=== PATIENT | female | born 1985 | race Caucasian/White ===

== ENCOUNTER 2016-10-18 00:01 | Emergency (ER) | payer OTHER ==
--- NOTE | 2016-10-18 03:37 | ED CLINICAL REPORT ---
Clinical Report - Physicians/Mid Levels [facility] [address] [place] [address] 10/18/2016 0:00 Patient: SUSU KINGSLEY Time Seen: 00:52. Arrived- By private vehicle. Historian- patient. HISTORY OF PRESENT ILLNESS Chief Complaint: FLANK PAIN. At its maximum, severity described as 8 / 10. When seen in the E.D., severity described as 8 / 10. Modifying factors- worsened by cough. It is described as "pain" and sharp and it is described as located in the left flank. This started about 4 1/2 hours ago and is still present. It was abrupt in onset and has been constant. The patient has had nausea and vomiting. She has had mild loose stools. This has occurred several times. No bloody, mucous containing or blood-tinged diarrhea. Similar symptoms previously: None. REVIEW OF SYSTEMS Last normal menstrual period was 1 week ago. She has had chills, a mild cough and urgency and frequency and experienced sweats. No fever, calf pain, chest pain, difficulty breathing or pedal edema. No black stools or bloody stools. All systems otherwise negative, except as recorded above. PAST HISTORY [facility]CP [facility] [place] [facility] [place] Problems: Dental Pain. Additional Surgeries: Fracture Repair. Medications: Control Pills. Allergies: No Known Drug Allergy. SOCIAL HISTORY Never smoker. Occasional alcohol use. No drug use. FAMILY HISTORY Diabetes in first-degree relative (mother and sibling); hypertension in first-degree relative (father); seizure disorder in first-degree relative (sibling). ADDITIONAL NOTES The nursing notes have been reviewed. PHYSICAL EXAM Vital Signs: Have been reviewed. Appearance: Alert. Eyes: Pupils equal, round and reactive to light. ENT: Pharynx normal. Neck: Normal inspection. Neck supple. CVS: Normal heart rate and rhythm. Heart sounds normal. Respiratory: No respiratory distress. Breath sounds normal. Abdomen: Soft and nontender. Bowel sounds normal. No organomegaly. No mass. Back: Normal inspection. Skin: Skin warm and dry. Normal skin color. Normal skin turgor. Extremities: Extremities exhibit normal ROM. No lower extremity edema. LABS, X-RAYS, AND EKG Abdominal CT: 5 mm proximal left ureteral calculus with mild left hydronephrosis and mild proximal left hydroureter. The study was interpreted by the radiologist and contemporaneously by me. Laboratory Tests: UA-Culture if indicated: (KHANH: 10/18/2016 00:52) ( [facility] [place] 10/18/2016 02:35) Final results Test Result Flag Units (Reference) URINE COLOR YELLOW URINE APPEARANCE CLEAR URINE GLUCOSE NEGATIVE (NEGATIVE) URINE BILIRUBIN NEGATIVE (NEGATIVE) URINE KETONE 1+ (NEGATIVE) URINE SPECIFIC GRAVITY 1.020 (1.010-1.030) URINE PH 7.5 (5.0-8.0) URINE PROTEIN NEGATIVE (NEGATIVE) URINE UROBILINOGEN 0.2 EU/dL (0.2-1.0) URINE NITRITE NEGATIVE (NEGATIVE) URINE BLOOD 3+ (NEGATIVE) URINE LEUK ESTERASE TRACE (NEGATIVE) URINE RBC 3-5 rbc/hpf (0-1) URINE WBC 5-10 wbc/hpf (0-1) URINE EPITHELIAL CELLS 5-10 EPI/hpf (0-5) URINE BACTERIA MODERATE (2+ TO 3+) (NONE SEEN) URINE COMMENT CULTURE INDICATED URINE CULTURES ARE SET-UP BASED ON THE FOLLOWING CRITERIA:POSITIVE NITRITEPOSITIVE LEUKOCYTE ESTERASEGREATER THAN 10 WHITE BLOOD CELLSMODERATE (2+) OR GREATER BACTERIA Urine: (KHANH: 10/18/2016 00:52) ( [facility] [place] 10/18/2016 02:32) Final results Test Result Flag Units (Reference) URINE NEGATIVE CBC w Diff: (KHANH: 10/18/2016 01:00) ( [facility] [place] 10/18/2016 02:06) Final results Test Result Flag Units (Reference) WHITE BLOOD COUNT 10.2 K/uL (4.5-11.5) RED BLOOD COUNT 4.60 M/uL (4.00-5.20) HEMOGLOBIN 14.1 gm/dL (12.0-16.0) HEMATOCRIT 41.8 % (36.0-46.0) MEAN CELL VOLUME 91 fL (80-100) MEAN CORPUSCULAR HGB 31 pg (26-34) MEAN CORPUSCULAR HGB CONC 34 g/dL (31-37) RED CELL DISTRIBUTION WIDTH 13.1 % (11.6-14.8) PLATELET COUNT 256 K/uL (150-400) NEUTROPHIL % 82.7 H % (50-75) LYMPH % 12.9 L % (25-40) MONO % 4.2 % (3-14) EOSINOPHIL % 0.1 % (0-4) BASOPHIL % 0.1 % (0-2) CMP: (KHANH: 10/18/2016 01:00) ( MsgRcvd 10/18/2016 01:29) Final results Test Result Flag Units (Reference) GLUCOSE 140 H mg/dL (70-110) BUN 11 mg/dL (7-18) CREATININE 0.9 mg/dL (0.6-1.3) Estimated GFR >60 mL/min Estimated GFR- >60 mL/min Note: Persistent reduction over 3 months in eGFR<60 mL/min/1.73 m2 defines CKD. Patients with eGFR values>=60 mL/min/1.73 m2 may also have CKD if evidence ofpersistent proteinuria. Additional information may be foundat www.kidney.org. SODIUM 141 mmol/L (136-145) POTASSIUM 3.8 mmol/L (3.5-5.1) CHLORIDE 105 mmol/L (98-107) CARBON DIOXIDE 22 mmol/L (21-32) CALCIUM 8.7 mg/dL (8.5-10.1) TOTAL PROTEIN 7.5 g/dL (6.4-8.2) ALBUMIN 3.9 g/dL (3.3-5.0) BILIRUBIN, TOTAL 0.7 mg/dL (0.0-1.0) ALKALINE PHOSPHATASE 52 U/L (46-116) AST (SGOT) 22 U/L (15-37) ALT (SGPT) 31 U/L (12-78) LIPASE 96 U/L (73-393) AMYLASE 35 U/L (25-115) . PROGRESS AND PROCEDURES Course of Care: Patient is stable. Discussed case with health care provider. Patient/family counseled. Old medical records ordered. Old records unavailable. Disposition: Discharged. Condition: stable. CLINICAL IMPRESSION Ureterolithiasis (single stone) in the left ureter with renal colic and hydronephrosis. INSTRUCTIONS No driving or operating machinery while taking medication. Sedative medication was given during your visit. Do not work until released. Drink plenty of fluids. Warnings: Further evaluation is necessary. GENERAL WARNINGS: Return or contact your physician immediately if your condition worsens or changes unexpectedly, if not improving as expected, or if other problems arise. Prescription Medications: Hydrocodone/APAP 5mg/325mg: take 1 to 2 orally every 6 hours as needed for pain. Dispense fifteen (15). No refills. Zofran 4 mg: Take 1 orally every six hours as needed for nausea/vomiting. Dispense ten (10). No refills. Substitution is permissible. Toradol 10 mg tablets: Take 1 tablet orally every 6 hours as needed. Dispense fifteen (15). No refills. Substitution is permissible. Flomax 0.4 mg: take 1 orally every 24 hours. Dispense five (5). No refills. Substitution is permissible. Follow-up: Follow up with your doctor tomorrow. Call for the next available appointment. Follow up with a urologist- as recommended by your primary care physician. Understanding of the discharge instructions verbalized by patient and family. (Electronically signed by Santo Mckeon MD 10/22/2016 15:49)
--- NOTE | 2016-10-18 03:37 | ED ORDER SUMMARY ---
..... Patient: SUSU KINGSLEY OrderSheet [facility] VisitID: [id number] [address] [place] [address] 31y, F Registration Date/Time: 10/18/2016 ORDER SHEET Weight: 108.8 kg (stated) Allergies: No Known Drug Allergy GENERAL ORDERS: CBC w Diff Urgent (00:51 10/18/2016 Julio GARCIA) (Ack 0:58 CHagerty ER Singeing Torch Operator) (1:10 JBullard R.N.) CMP Urgent (00:51 10/18/2016 Julio GARCIA) (Ack 0:58 CHagerty ER Singeing Torch Operator) (1:10 JBullard R.N.) UA-Culture if indicated Urgent (00:51 10/18/2016 Julio GARCIA) (Ack 0:58 CHagerty ER Singeing Torch Operator) (2:09 JBullard R.N.) Amylase Urgent (00:51 10/18/2016 Julio GARCIA) (Ack 0:58 CHagerty ER Singeing Torch Operator) (1:11 JBullard R.N.) Lipase Urgent (00:51 10/18/2016 Julio GARCIA) (Ack 0:58 CHagerty ER Singeing Torch Operator) (1:11 JBullard R.N.) Urine Urgent (00:51 10/18/2016 Julio GARCIA) (Ack 0:58 CHagerty ER Singeing Torch Operator) (2:09 JBullard R.N.) CT Abd/Pel wo Cont Urgent (02:43 10/18/2016 Julio GARCIA) (Ack 2:45 CHagerty ER Singeing Torch Operator) (3:13 Soraya) MEDICATION ORDERS: Lovenox Subcut 1 mg/kg (HIGH ALERT MEDICATION, NOW) (03:15 10/18/2016 Julio GARCIA) (Cancelled: Other3:20 Julio GARCIA) Flomax PO 0.4 mg (NOW) (03:18 10/18/2016 Julio GARCIA) (4:10 JBullard R.N.) IV FLUIDS: IV NS : initial bolus 500 mL (1000 mL/hr), then 125 mL/hr for 4h (NOW); Urgent (00:51 10/18/2016 Julio GACRIA) (1:23 JBullard R.N.) Zofran IV 4 mg (NOW) (00:51 10/18/2016 Julio GARCIA) (1:23 Niya Fernandez) Dilaudid IV 0.5 mg (HIGH ALERT MEDICATION, NOW) (01:36 10/18/2016 Julio GARCIA) (2:09 Niya Fernandez) Toradol IV 30 mg (NOW) (03:18 10/18/2016 Julio GARCIA) (4:11 Niya Fernandez) ORDER SHEET NOTES: [Electronically signed by Bridger Genao R.N. (04:39 10/18/2016)] [Electronically signed by Santo Mckeon MD (15:49 10/22/2016)] [Electronically locked/signed by Bridger Genao R.N. (04:39 10/18/2016)]
--- NOTE | 2016-10-18 03:37 | ED CLINICAL REPORT ---
Clinical Report - Physicians/Mid Levels [facility] [address] [place] [address] 10/18/2016 0:00 Patient: SUSU KINGSLEY Time Seen: 00:52. Arrived- By private vehicle. Historian- patient. HISTORY OF PRESENT ILLNESS Chief Complaint: FLANK PAIN. At its maximum, severity described as 8 / 10. When seen in the E.D., severity described as 8 / 10. Modifying factors- worsened by cough. It is described as "pain" and sharp and it is described as located in the left flank. This started about 4 1/2 hours ago and is still present. It was abrupt in onset and has been constant. The patient has had nausea and vomiting. She has had mild loose stools. This has occurred several times. No bloody, mucous containing or blood-tinged diarrhea. Similar symptoms previously: None. REVIEW OF SYSTEMS Last normal menstrual period was 1 week ago. She has had chills, a mild cough and urgency and frequency and experienced sweats. No fever, calf pain, chest pain, difficulty breathing or pedal edema. No black stools or bloody stools. All systems otherwise negative, except as recorded above. PAST HISTORY PCP - [facility] and [facility] [place] Problems: Dental Pain. Additional Surgeries: Fracture Repair. Medications: Control Pills. Allergies: No Known Drug Allergy. SOCIAL HISTORY Never smoker. Occasional alcohol use. No drug use. FAMILY HISTORY Diabetes in first-degree relative (mother and sibling); hypertension in first-degree relative (father); seizure disorder in first-degree relative (sibling). ADDITIONAL NOTES The nursing notes have been reviewed. PHYSICAL EXAM Vital Signs: Have been reviewed. Appearance: Alert. Eyes: Pupils equal, round and reactive to light. ENT: Pharynx normal. Neck: Normal inspection. Neck supple. CVS: Normal heart rate and rhythm. Heart sounds normal. Respiratory: No respiratory distress. Breath sounds normal. Abdomen: Soft and nontender. Bowel sounds normal. No organomegaly. No mass. Back: Normal inspection. Skin: Skin warm and dry. Normal skin color. Normal skin turgor. Extremities: Extremities exhibit normal ROM. No lower extremity edema. LABS, X-RAYS, AND EKG Abdominal CT: 5 mm proximal left ureteral calculus with mild left hydronephrosis and mild proximal left hydroureter. The study was interpreted by the radiologist and contemporaneously by me. Laboratory Tests: UA-Culture if indicated: (KHANH: 10/18/2016 00:52) ( [facility] [place] 10/18/2016 02:35) Final results Test Result Flag Units (Reference) URINE COLOR YELLOW URINE APPEARANCE CLEAR URINE GLUCOSE NEGATIVE (NEGATIVE) URINE BILIRUBIN NEGATIVE (NEGATIVE) URINE KETONE 1+ (NEGATIVE) URINE SPECIFIC GRAVITY 1.020 (1.010-1.030) URINE PH 7.5 (5.0-8.0) URINE PROTEIN NEGATIVE (NEGATIVE) URINE UROBILINOGEN 0.2 EU/dL (0.2-1.0) URINE NITRITE NEGATIVE (NEGATIVE) URINE BLOOD 3+ (NEGATIVE) URINE LEUK ESTERASE TRACE (NEGATIVE) URINE RBC 3-5 rbc/hpf (0-1) URINE WBC 5-10 wbc/hpf (0-1) URINE EPITHELIAL CELLS 5-10 EPI/hpf (0-5) URINE BACTERIA MODERATE (2+ TO 3+) (NONE SEEN) URINE COMMENT CULTURE INDICATED URINE CULTURES ARE SET-UP BASED ON THE FOLLOWING CRITERIA:POSITIVE NITRITEPOSITIVE LEUKOCYTE ESTERASEGREATER THAN 10 WHITE BLOOD CELLSMODERATE (2+) OR GREATER BACTERIA Urine: (KHANH: 10/18/2016 00:52) ( [facility] [place] 10/18/2016 02:32) Final results Test Result Flag Units (Reference) URINE NEGATIVE CBC w Diff: (KHANH: 10/18/2016 01:00) ( [facility] [place]:06[place] Final results Test Result Flag Units (Reference) WHITE BLOOD COUNT 10.2 K/uL (4.5-11.5) RED BLOOD COUNT 4.60 M/uL (4.00-5.20) HEMOGLOBIN 14.1 gm/dL (12.0-16.0) HEMATOCRIT 41.8 % (36.0-46.0) MEAN CELL VOLUME 91 fL (80-100) MEAN CORPUSCULAR HGB 31 pg (26-34) MEAN CORPUSCULAR HGB CONC 34 g/dL (31-37) RED CELL DISTRIBUTION WIDTH 13.1 % (11.6-14.8) PLATELET COUNT 256 K/uL (150-400) NEUTROPHIL % 82.7 H % (50-75) LYMPH % 12.9 L % (25-40) MONO % 4.2 % (3-14) EOSINOPHIL % 0.1 % (0-4) BASOPHIL % 0.1 % (0-2) CMP: (KHANH: 10/18/2016 01:00) ( MsgRcvd 10/18/2016 01:29) Final results Test Result Flag Units (Reference) GLUCOSE 140 H mg/dL (70-110) BUN 11 mg/dL (7-18) CREATININE 0.9 mg/dL (0.6-1.3) Estimated GFR >60 mL/min Estimated GFR- >60 mL/min Note: Persistent reduction over 3 months in eGFR<60 mL/min/1.73 m2 defines CKD. Patients with eGFR values>=60 mL/min/1.73 m2 may also have CKD if evidence ofpersistent proteinuria. Additional information may be foundat www.kidney.org. SODIUM 141 mmol/L (136-145) POTASSIUM 3.8 mmol/L (3.5-5.1) CHLORIDE 105 mmol/L (98-107) CARBON DIOXIDE 22 mmol/L (21-32) CALCIUM 8.7 mg/dL (8.5-10.1) TOTAL PROTEIN 7.5 g/dL (6.4-8.2) ALBUMIN 3.9 g/dL (3.3-5.0) BILIRUBIN, TOTAL 0.7 mg/dL (0.0-1.0) ALKALINE PHOSPHATASE 52 U/L (46-116) AST (SGOT) 22 U/L (15-37) ALT (SGPT) 31 U/L (12-78) LIPASE 96 U/L (73-393) AMYLASE 35 U/L (25-115) . PROGRESS AND PROCEDURES Course of Care: Patient is stable. Discussed case with health care provider. Patient/family counseled. Old medical records ordered. Old records unavailable. Disposition: Discharged. Condition: stable. CLINICAL IMPRESSION Ureterolithiasis (single stone) in the left ureter with renal colic and hydronephrosis. INSTRUCTIONS No driving or operating machinery while taking medication. Sedative medication was given during your visit. Do not work until released. Drink plenty of fluids. Warnings: Further evaluation is necessary. GENERAL WARNINGS: Return or contact your physician immediately if your condition worsens or changes unexpectedly, if not improving as expected, or if other problems arise. Prescription Medications: Hydrocodone/APAP 5mg/325mg: take 1 to 2 orally every 6 hours as needed for pain. Dispense fifteen (15). No refills. Zofran 4 mg: Take 1 orally every six hours as needed for nausea/vomiting. Dispense ten (10). No refills. Substitution is permissible. Toradol 10 mg tablets: Take 1 tablet orally every 6 hours as needed. Dispense fifteen (15). No refills. Substitution is permissible. Flomax 0.4 mg: take 1 orally every 24 hours. Dispense five (5). No refills. Substitution is permissible. Follow-up: Follow up with your doctor tomorrow. Call for the next available appointment. Follow up with a urologist- as recommended by your primary care physician. Understanding of the discharge instructions verbalized by patient and family. (Electronically signed by Santo Mckeon MD 10/22/2016 15:49)
--- NOTE | 2016-10-18 03:37 | ED NURSING NOTES ---
Clinical Report - Nurses [facility] [address] [place] [address] 10/18/2016 0:00 Patient: SUSU KINGSLEY TRIAGE Triage time 0036. Chief Complaint: ABDOMINAL PAIN, NAUSEA, VOMITING and DIARRHEA. --01:07 Bridger Genao R.N. 01:38 10/18/16. BP: 151/85. HR: 79. RR: 18. O2 saturation: 100%. Temp: 98 F. Pain level now 04/02. --01:38 Bridger Genao R.N. Weight: 108.8 kg stated. Height/Length: 68 inches Per Patient. BMI: 36.5. --00:40 Bridger Genao R.N. Medications Control Pills. --00:38 Bridger Genao R.N. Allergies No Known Drug Allergy. --00:37 Bridger Genao R.N. History Arrived by private vehicle. Historian: spouse and patient. Accompanied by spouse. This started today. Onset. (4 1/2 hours ago). She has had nausea, vomiting, diarrhea and abdominal pain. Last oral intake by patient was dinner yesterday (7 PM). Treatment HAND SIZER: None. PAST MEDICAL HX: Last normal menstrual period- Oct 04. FALL RISK ASSESSMENT: Fall risk assessment completed. No fall risk identified. NUTRITIONAL RISK ASSESSMENT: The nutritional risk assessment revealed no deficiencies. FUNCTIONAL ASSESSMENT: Functional assessment: no impairments noted. LEARNING NEEDS ASSESSMENT: The learning needs assessment revealed no barriers. SKIN INTEGRITY ASSESSMENT: Skin integrity risk assessment completed. No skin integrity risk identified. --01:07 Bridger Genao R.N. PROBLEMS: Dental Pain. LNMP - Last Normal Menstrual Period. --00:38 Bridger Genao R.N. ADDITIONAL SURGERIES: Fracture Repair. --00:38 Bridger Genao R.N. Interventions ID band on patient. --01:07 Bridger Genao R.N. PHYSICAL ASSESSMENT Ambulatory to room. GENERAL / NEURO / PSYCH: Alert. Oriented X 4. Appears in pain. HEENT: Mucous membranes are pink. RESPIRATORY: Respirations not labored. Breath sounds within normal limits. CVS: Capillary refill less than 2 seconds. GI / : Abdomen soft and nontender. SKIN: Skin is warm and dry. --01:07 Bridger Genao R.N. NURSING PROGRESS NOTES Patient gowned. Head of bed elevated. Reassurance given. Patient identifiers checked. Call light placed in reach. Bed placed in lowest position. Brakes of bed on. --01:08 Bridger Genao R.N. 01:10/18/2016 Site #1 started via IV in the left antecubital space with an 20g angiocath, with aseptic technique and good blood return; four attempts. Blood drawn: rainbow set. Labeled in the presence of the patient. Saline lock flushed with saline. --: Bridger Genao R.N. 01:10/18/2016 Zofran (Ondansetron HCl) IVP 4 mg given. via site #1. Allergies verified and confirmed 5 rights. IV patency established. IV site checked: no pain, redness, or swelling. IV flushed thoroughly pre- and post-medication administration. --: Bridger Genao R.N. 01:10/18/2016 Started bag #1 1000 mL IV Fluids IV NS (Saline); bolus of 1000 mL over 3 hour(s) via site #1. Allergies verified and confirmed 5 rights. IV patency established. IV site checked: no pain, redness, or swelling. IV flushed thoroughly pre- and post-medication administration. --: Bridger Genao R.N. 02:09 10/18/2016 Dilaudid (HYDROmorphone HCl PF) IVP 0.5 mg given. via site #1. 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 IV patency established. IV site checked: no pain, redness, or swelling. IV flushed thoroughly pre- and post-medication administration. --02:09 Bridger Genao R.N. 03:55 10/18/2016 Flomax (Tamsulosin HCl) PO 0.4 mg given. Allergies verified and confirmed 5 rights. --04:10 Bridger Genao R.N. 03:56 10/18/2016 Toradol IVP 30 mg given. via site #1. Allergies verified and confirmed 5 rights. IV patency established. IV site checked: no pain, redness, or swelling. IV flushed thoroughly pre- and post-medication administration. --04:11 Bridger Genao R.N. DISPOSITION / DISCHARGE Departure time: 0430. Condition at departure: improved. No learning barriers present. Discharge instructions provided and reviewed with the patient and spouse. Reviewed warnings. Reviewed medication(s). Treatments reviewed. Reviewed referrals. Reviewed diet. Activity restrictions reviewed. Work note given. Patient and spouse verbalized understanding. Written instructions provided in Lib[place]. The patient was discharged by the physician. She was discharged home and accompanied by spouse. She left the Emergency Department ambulatory and via private vehicle. Spouse driving. FALL RISK ASSESSMENT: Fall risk assessment completed. No fall risk identified. --04:39 Bridger Genao R.N. 04:38 10/18/16. BP: 145/78. HR: 88. RR: 18. O2 saturation: 98%. Temp: 98 F. Pain level now 01/01. --04:39 Bridger Genao R.N. Locked/Released at 10/18/2016 4:39 by Bridger Genao R.N.
--- NOTE | 2016-10-18 03:37 | ED ORDER SUMMARY ---
..... Patient: SUSU KINGSLEY OrderSheet [facility] VisitID: [id number] [address] [place] [address] 31y, F Registration Date/Time: 10/18/2016 ORDER SHEET Weight: 108.8 kg (stated) Allergies: No Known Drug Allergy GENERAL ORDERS: CBC w Diff Urgent (00:51 10/18/2016 Julio GARCIA) (Ack 0:58 CHagerty ER Deep Well Contractor) (1:10 JBullard R.N.) CMP Urgent (00:51 10/18/2016 Julio GARCIA) (Ack 0:58 CHagerty ER Deep Well Contractor) (1:10 JBullard R.N.) UA-Culture if indicated Urgent (00:51 10/18/2016 Julio GARCIA) (Ack 0:58 CHagerty ER Deep Well Contractor) (2:09 JBullard R.N.) Amylase Urgent (00:51 10/18/2016 Julio GARCIA) (Ack 0:58 CHagerty ER Deep Well Contractor) (1:11 JBullard R.N.) Lipase Urgent (00:51 10/18/2016 Julio GARCIA) (Ack 0:58 CHagerty ER Deep Well Contractor) (1:11 JBullard R.N.) Urine Urgent (00:51 10/18/2016 Julio GARCIA) (Ack 0:58 CHagerty ER Deep Well Contractor) (2:09 JBullard R.N.) CT Abd/Pel wo Cont Urgent (02:43 10/18/2016 Julio GARCIA) (Ack 2:45 CHagerty ER Deep Well Contractor) (3:13 Soraya) MEDICATION ORDERS: Lovenox Subcut 1 mg/kg (HIGH ALERT MEDICATION, NOW) (03:15 10/18/2016 Julio GARCIA) (Cancelled: Other3:20 Julio GARCIA) Flomax PO 0.4 mg (NOW) (03:18 10/18/2016 Julio GARCIA) (4:10 JBullard R.N.) IV FLUIDS: IV NS : initial bolus 500 mL (1000 mL/hr), then 125 mL/hr for 4h (NOW); Urgent (00:51 10/18/2016 Julio GARCIA) (1:23 JBullard R.N.) Zofran IV 4 mg (NOW) (00:51 10/18/2016 Julio GARCIA) (1:23 Niya Fernandez) Dilaudid IV 0.5 mg (HIGH ALERT MEDICATION, NOW) (01:36 10/18/2016 Julio GARCIA) (2:09 Niya Fernandez) Toradol IV 30 mg (NOW) (03:18 10/18/2016 Julio GARCIA) (4:11 Niya Fernandez) ORDER SHEET NOTES: [Electronically signed by Bridger Genao R.N. (04:39 10/18/2016)] [Electronically signed by Santo Mckeon MD (15:49 10/22/2016)] [Electronically locked/signed by Bridger Genao R.N. (04:39 10/18/2016)]
--- NOTE | 2016-10-18 03:37 | ED NURSING NOTES ---
Clinical Report - Nurses [facility] [address] [place] [address] 10/18/2016 0:00 Patient: SUSU KINGSLEY TRIAGE Triage time 0036. Chief Complaint: ABDOMINAL PAIN, NAUSEA, VOMITING and DIARRHEA. --01:07 Bridger Genao R.N. 01:38 10/18/16. BP: 151/85. HR: 79. RR: 18. O2 saturation: 100%. Temp: 98 F. Pain level now 04/02. --01:38 Bridger Genao R.N. Weight: 108.8 kg stated. Height/Length: 68 inches Per Patient. BMI: 36.5. --00:40 Bridger Genao R.N. Medications Control Pills. --00:38 Bridger Genao R.N. Allergies No Known Drug Allergy. --00:37 Bridger Genao R.N. History Arrived by private vehicle. Historian: spouse and patient. Accompanied by spouse. This started today. Onset. (4 1/2 hours ago). She has had nausea, vomiting, diarrhea and abdominal pain. Last oral intake by patient was dinner yesterday (7 PM). 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 PAST MEDICAL HX: Last normal menstrual period- Oct 04. FALL RISK ASSESSMENT: Fall risk assessment completed. No fall risk identified. NUTRITIONAL RISK ASSESSMENT: The nutritional risk assessment revealed no deficiencies. FUNCTIONAL ASSESSMENT: Functional assessment: no impairments noted. LEARNING NEEDS ASSESSMENT: The learning needs assessment revealed no barriers. SKIN INTEGRITY ASSESSMENT: Skin integrity risk assessment completed. No skin integrity risk identified. --01:07 Bridger Genao R.N. PROBLEMS: Dental Pain. LNMP - Last Normal Menstrual Period. --00:38 Bridger Genao R.N. ADDITIONAL SURGERIES: Fracture Repair. --00:38 Bridger Genao R.N. Interventions ID band on patient. --01:07 Bridger Genao R.N. PHYSICAL ASSESSMENT Ambulatory to room. GENERAL / NEURO / PSYCH: Alert. Oriented X 4. Appears in pain. HEENT: Mucous membranes are pink. RESPIRATORY: Respirations not labored. Breath sounds within normal limits. CVS: Capillary refill less than 2 seconds. GI / : Abdomen soft and nontender. SKIN: Skin is warm and dry. --01:07 Bridger Genao R.N. NURSING PROGRESS NOTES Patient gowned. Head of bed elevated. Reassurance given. Patient identifiers checked. Call light placed in reach. Bed placed in lowest position. Brakes of bed on. --01:08 Bridger Genao R.N. 01:10/18/2016 Site #1 started via IV in the left antecubital space with an 20g angiocath, with aseptic technique and good blood return; four attempts. Blood drawn: rainbow set. Labeled in the presence of the patient. Saline lock flushed with saline. --: Bridger Genao R.N. 01:10/18/2016 Zofran (Ondansetron HCl) IVP 4 mg given. via site #1. Allergies verified and confirmed 5 rights. IV patency established. IV site checked: no pain, redness, or swelling. IV flushed thoroughly pre- and post-medication administration. --: Bridger Genao R.N. 01:10/18/2016 Started bag #1 1000 mL IV Fluids IV NS (Saline); bolus of 1000 mL over 3 hour(s) via site #1. Allergies verified and confirmed 5 rights. IV patency established. IV site checked: no pain, redness, or swelling. IV flushed thoroughly pre- and post-medication administration. --: Bridger Genao R.N. 02:09 10/18/2016 Dilaudid (HYDROmorphone HCl PF) IVP 0.5 mg given. via site #1. 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 IV patency established. IV site checked: no pain, redness, or swelling. IV flushed thoroughly pre- and post-medication administration. --02:09 Bridger Genao R.N. 03:55 10/18/2016 Flomax (Tamsulosin HCl) PO 0.4 mg given. Allergies verified and confirmed 5 rights. --04:10 Bridger Genao R.N. 03:56 10/18/2016 Toradol IVP 30 mg given. via site #1. Allergies verified and confirmed 5 rights. IV patency established. IV site checked: no pain, redness, or swelling. IV flushed thoroughly pre- and post-medication administration. --04:11 Bridger Genao R.N. DISPOSITION / DISCHARGE Departure time: 0430. Condition at departure: improved. No learning barriers present. Discharge instructions provided and reviewed with the patient and spouse. Reviewed warnings. Reviewed medication(s). Treatments reviewed. Reviewed referrals. Reviewed diet. Activity restrictions reviewed. Work note given. Patient and spouse verbalized understanding. Written instructions provided in [place]. The patient was discharged by the physician. She was discharged home and accompanied by spouse. She left the Emergency Department ambulatory and via private vehicle. Spouse driving. FALL RISK ASSESSMENT: Fall risk assessment completed. No fall risk identified. --04:39 Bridger Genao R.N. 04:38 10/18/16. BP: 145/78. HR: 88. RR: 18. O2 saturation: 98%. Temp: 98 F. Pain level now 01/01. --04:39 Bridger Genao R.N. Locked/Released at 10/18/2016 4:39 by Bridger Genao R.N.
--- NOTE | 2016-10-18 06:08 | DIAGNOSTIC IMAGING REPORT ---
PROCEDURE: CT ABDOMEN/PELVIS W/O CONTRAST INDICATION: Left flank pain. TECHNIQUE: Noncontrast axial images with sagittal and coronal reformations. Preliminary report provided by Evelyne Lion MD ([facility]). COMPARISON: None. FINDINGS: ABDOMEN: There is mild left hydronephrosis and hydroureter secondary to a 4 mm x 3 mm left proximal ureteral calculus. Left kidney is otherwise normal. Right kidney and ureter are normal. Gallbladder, liver, spleen (two old small calcified granulomas). pancreas, and aorta are normal. Bowel pattern is normal, including appendix. PELVIS: There is a 2.2 cm left ovarian cyst. Uterus and right adnexal structures are normal. No evidence of free fluid. IMPRESSION: 1. There is mild left hydronephrosis and hydroureter secondary to a 4 mm x 3 mm left proximal ureteral calculus. 2. Old calcified granulomas in the spleen. 3. There is a 2.2 cm left ovarian cyst (incidental finding). 4. Preliminary report provided to Dr. Mckeon. All CT scans at this facility use dose modulation, iterative reconstruction, and/or weight-based dosing when appropriate to reduce radiation dose to as low as reasonably achievable.
--- NOTE | 2016-10-18 06:08 | DIAGNOSTIC IMAGING REPORT ---
PROCEDURE: CT ABDOMEN/PELVIS W/O CONTRAST INDICATION: Left flank pain. TECHNIQUE: Noncontrast axial images with sagittal and coronal reformations. Preliminary report provided by Evelyne Lion MD ([facility]). COMPARISON: None. FINDINGS: ABDOMEN: There is mild left hydronephrosis and hydroureter secondary to a 4 mm x 3 mm left proximal ureteral calculus. Left kidney is otherwise normal. Right kidney and ureter are normal. Gallbladder, liver, spleen (two old small calcified granulomas). pancreas, and aorta are normal. Bowel pattern is normal, including appendix. PELVIS: There is a 2.2 cm left ovarian cyst. Uterus and right adnexal structures are normal. No evidence of free fluid. IMPRESSION: 1. There is mild left hydronephrosis and hydroureter secondary to a 4 mm x 3 mm left proximal ureteral calculus. 2. Old calcified granulomas in the spleen. 3. There is a 2.2 cm left ovarian cyst (incidental finding). 4. Preliminary report provided to Dr. Mckeon. All CT scans at this facility use dose modulation, iterative reconstruction, and/or weight-based dosing when appropriate to reduce radiation dose to as low as reasonably achievable.
--- NOTE | 2016-10-22 15:49 | ED MED RECONCILIATION SUMMARY ---
Patient: SUSU KINGSLEY Medication Reconciliation Report [facility] VisitID: [id number] [address] [place] [address] 31y, F Registration Date/Time: 10/18/2016 Weight: 108.8 kg Height/Length: 68 in. BMI: 36.5 ALLERGIES: No Known Drug Allergy The patient's Home Medications are listed below: THE FOLLOWING MEDICATIONS NEED TO BE RECONCILED: Control Pills The source(s) of the original Home Medication information: Not obtained. The following Medications were given to the patient in the Emergency Department: Zofran [IVP] IVP 4 mg, administered: 10/18/2016 1:23:00 AM IV NS IV Fluids bolus 1000 mL over 3 hour(s), administered: 10/18/2016 1:23:00 AM Dilaudid [IVP] IVP 0.5 mg, administered: 10/18/2016 2:09:00 AM Flomax [PO] PO 0.4 mg, administered: 10/18/2016 3:55:00 AM Toradol [IVP] IVP 30 mg, administered: 10/18/2016 3:56:00 AM The following Medications were prescribed to the patient: Hydrocodone/APAP 5mg/325mg: take 1 to 2 orally every 6 hours as needed for pain. Dispense fifteen (15). No refills. -- Santo Mckeon MD Zofran 4 mg: Take 1 orally every six hours as needed for nausea/vomiting. Dispense ten (10). No refills. Substitution is permissible. -- Santo Mckeon MD Toradol 10 mg tablets: Take 1 tablet orally every 6 hours as needed. Dispense fifteen (15). No refills. Substitution is permissible. -- Santo Mckeon MD Flomax 0.4 mg: take 1 orally every 24 hours. Dispense five (5). No refills. Substitution is permissible. -- Santo Mckeon MD
--- NOTE | 2016-10-22 15:49 | ED DISCHARGE INSTRUCTIONS ---
Patient: SUSU KINGSLEY General Instructions [facility] VisitID: [id number] [address] [place] [address] 31y, F Registration Date/Time: 10/18/2016 Ureterolithiasis (single stone) in the left ureter with renal colic and hydronephrosis. INSTRUCTIONS No driving or operating machinery while taking medication. Sedative medication was given during your visit. Do not work until released. Drink plenty of fluids. Warnings: Further evaluation is necessary. GENERAL WARNINGS: Return or contact your physician immediately if your condition worsens or changes unexpectedly, if not improving as expected, or if other problems arise. Prescription Medications: Hydrocodone/APAP 5mg/325mg: take 1 to 2 orally every 6 hours as needed for pain. Dispense fifteen (15). No refills. Zofran 4 mg: Take 1 orally every six hours as needed for nausea/vomiting. Dispense ten (10). No refills. Substitution is permissible. Toradol 10 mg tablets: Take 1 tablet orally every 6 hours as needed. Dispense fifteen (15). No refills. Substitution is permissible. Flomax 0.4 mg: take 1 orally every 24 hours. Dispense five (5). No refills. Substitution is permissible. Follow-up: Follow up with your doctor tomorrow. Call for the next available appointment. Follow up with a urologist- as recommended by your primary care physician. Understanding of the discharge instructions verbalized by patient and family. ADDITIONAL INFORMATION Kidney Stone (W/ Colic) The sharp cramping pain and nausea/vomiting that you have is due to a small stone which has formed in the kidney and is now passing down a narrow tube (ureter) on its way to your bladder. Once it reaches your bladder, the pain will stop. The stone may pass in your urine stream in one piece. [The size may be 1/16" to 1/4" (1-6mm)]. Or, the stone may also break up into hemalatha fragments which you may not even notice. Once you have had a kidney stone, you are at risk for developing another one in the future. Home Care: Drink plenty of fluids (at least 8 to 10 glasses of water a day). Most stones will pass on their own, but may take from a few hours to a few days. Sometimes the stone is too large to pass by itself and special methods will have to be used to remove the stone. Each time you urinate, do so in a jar. Pour the urine from the jar through the strainer and into the toilet. Continue doing this until 24 hours after your pain stops. By then, if there was a kidney stone, it should pass from your bladder. Some stones dissolve into sand-like particles and pass right through the strainer. In that case, you wont ever see a stone. Save any stone that you find in the strainer and bring it to your doctor for analysis. It may be possible to prevent certain types of stones from forming. Therefore, it is important to know what kind of stone you have. Try to stay as active as possible since this will help the stone pass. Do not stay in bed unless your pain prevents you from getting up. You may notice a red, pink or brown color to your urine. This is normal while passing a kidney stone. Follow Up with your doctor or return to this facility if the pain lasts more than 48 hours. Get Prompt Medical Attention if any of the following occur: Pain that is not controlled by the medicine given Repeated vomiting or unable to keep down fluids Weakness, dizziness or fainting Fever of 100.4F (38C) or higher, or as directed by your healthcare provider Passage of solid red or brown urine (can't see through it) or urine with lots of blood clots Unable to pass urine for 8 hours and increasing bladder pressure Hydrocodone Bitartrate, Acetaminophen Oral tablet What is this medicine? ACETAMINOPHEN; HYDROCODONE (a set a MARCO sharron fen; lauren droe KOE done) is a pain reliever. It is used to treat mild to moderate pain. How should I use this medicine? Take this medicine by mouth. Swallow it with a full glass of water. Follow the directions on the prescription label. If the medicine upsets your stomach, take the medicine with food or milk. Do not take more than you are told to take. Talk to your instrument repair specialist regarding the use of this medicine in children. This medicine is not approved for use in children. What side effects may I notice from receiving this medicine? Side effects that you should report to your doctor or health congregational care pastor as soon as possible: allergic reactions like skin rash, itching or hives, swelling of the face, lips, or tongue breathing problems confusion feeling faint or lightheaded, falls stomach pain yellowing of the eyes or skin Side effects that usually do not require medical attention (report to your doctor or health congregational care pastor if they continue or are bothersome): nausea, vomiting stomach upset What may interact with this medicine? alcohol antihistamines isoniazid medicines for depression, anxiety, or psychotic disturbances medicines for sleep muscle relaxants naltrexone narcotic medicines (opiates) for pain phenobarbital ritonavir tramadol What if I miss a dose? If you miss a dose, take it as soon as you can. If it is almost time for your next dose, take only that dose. Do not take double or extra doses. Where should I keep my medicine? Keep out of the reach of children. This medicine can be abused. Keep your medicine in a safe place to protect it from theft. Do not share this medicine with anyone. Selling or giving away this medicine is dangerous and against the law. Store at room temperature between 15 and 30 degrees C (59 and 86 degrees F). Protect from light. Keep container tightly closed. Throw away any unused medicine after the expiration date. Discard unused medicine and used packaging carefully. Pets and children can be harmed if they find used or lost packages. What should I tell my health care provider before I take this medicine? They need to know if you have any of these conditions: brain tumor Crohn's disease, inflammatory bowel disease, or ulcerative colitis drink more than 3 alcohol-containing drinks per day drug abuse or addiction head injury heart or circulation problems kidney disease or problems going to the bathroom liver disease lung disease, asthma, or breathing problems an unusual or allergic reaction to acetaminophen, hydrocodone, other opioid analgesics, other medicines, foods, dyes, or preservatives or trying to get breast-feeding What should I watch for while using this medicine? Tell your doctor or health congregational care pastor if your pain does not go away, if it gets worse, or if you have new or a different type of pain. You may develop tolerance to the medicine. Tolerance means that you will need a higher dose of the medicine for pain relief. Tolerance is normal and is expected if you take the medicine for a long time. Do not suddenly stop taking your medicine because you may develop a severe reaction. Your body becomes used to the medicine. This does NOT mean you are addicted. Addiction is a behavior related to getting and using a drug for a non-medical reason. If you have pain, you have a medical reason to take pain medicine. Your doctor will tell you how much medicine to take. If your doctor wants you to stop the medicine, the dose will be slowly lowered over time to avoid any side effects. You may get drowsy or dizzy when you first start taking the medicine or change doses. Do not drive, use machinery, or do anything that may be dangerous until you know how the medicine affects you. Stand or sit up slowly. There are different types of narcotic medicines (opiates) for pain. If you take more than one type at the same time, you may have more side effects. Give your health care provider a list of all medicines you use. Your doctor will tell you how much medicine to take. Do not take more medicine than directed. Call emergency for help if you have problems breathing. The medicine will cause constipation. Try to have a bowel movement at least every 2 to 3 days. If you do not have a bowel movement for 3 days, call your doctor or health congregational care pastor. Too much acetaminophen can be very dangerous. Do not take Tylenol (acetaminophen) or medicines that contain acetaminophen with this medicine. Many non-prescription medicines contain acetaminophen. Always read the labels carefully. Ondansetron Oral disintegrating tablet What is this medicine? ONDANSETRON (on MOHIT se lolis) is used to treat nausea and vomiting caused by chemotherapy. It is also used to prevent or treat nausea and vomiting after surgery. How should I use this medicine? These tablets are made to dissolve in the mouth. Do not try to push the tablet through the foil backing. With dry hands, peel away the foil backing and gently remove the tablet. Place the tablet in the mouth and allow it to dissolve, then swallow. While you may take these tablets with water, it is not necessary to do so. Talk to your instrument repair specialist regarding the use of this medicine in children. Special care may be needed. What side effects may I notice from receiving this medicine? Side effects that you should report to your doctor or health congregational care pastor as soon as possible: allergic reactions like skin rash, itching or hives, swelling of the face, lips, or tongue breathing problems dizziness fast or irregular heartbeat feeling faint or lightheaded, falls fever and chills swelling of the hands and feet tightness in the chest Side effects that usually do not require medical attention (report to your doctor or health congregational care pastor if they continue or are bothersome): constipation or diarrhea headache What may interact with this medicine? Do not take this medicine with any of the following medications: -apomorphine -cisapride -dofetilide -dronedarone -pimozide -thioridazine -ziprasidone This medicine may also interact with the following medications: -carbamazepine -phenytoin -rifampicin -tramadol -other medicines that prolong the QT interval (cause an abnormal heart rhythm) What if I miss a dose? If you miss a dose, take it as soon as you can. If it is almost time for your next dose, take only that dose. Do not take double or extra doses. Where should I keep my medicine? Keep out of the reach of children. Store between 2 and 30 degrees C (36 and 86 degrees F). Throw away any unused medicine after the expiration date. What should I tell my health care provider before I take this medicine? They need to know if you have any of these conditions: heart disease history of irregular heartbeat liver disease low levels of magnesium or potassium in the blood an unusual or allergic reaction to ondansetron, granisetron, other medicines, foods, dyes, or preservatives or trying to get breast-feeding What should I watch for while using this medicine? Check with your doctor or health congregational care pastor as soon as you can if you have any sign of an allergic reaction. Ketorolac Tromethamine Oral tablet What is this medicine? KETOROLAC (yany toe ROLE ak) is a non-steroidal anti-inflammatory drug (NSAID). It is used for a short while to treat moderate to severe pain, including pain after surgery. It should not be used for more than 5 days. How should I use this medicine? Take this medicine by mouth with a full glass of water. Follow the directions on the prescription label. Take your medicine at regular intervals. Do not take your medicine more often than directed. Do not take more than the recommended dose. A special MedGuide will be given to you by the pharmacist with each prescription and refill. Be sure to read this information carefully each time. Talk to your instrument repair specialist regarding the use of this medicine in children. While this drug may be prescribed for children as young as 16 years of age for selected conditions, precautions do apply. Patients over 65 years old may have a stronger reaction and need a smaller dose. What side effects may I notice from receiving this medicine? Side effects that you should report to your doctor or health congregational care pastor as soon as possible: allergic reactions like skin rash, itching or hives, swelling of the face, lips, or tongue black or tarry stools breathing problems changes in vision chest pain high blood pressure nausea or vomiting redness, blistering, peeling or loosening of the skin, including inside the mouth severe abdominal pain slurred speech or weakness on one side of the body unexplained weight gain or swelling unusual bleeding or bruising unusually weak or tired yellowing of eyes or skin Side effects that usually do not require medical attention (report to your doctor or health congregational care pastor if they continue or are bothersome): diarrhea dizziness headache heartburn What may interact with this medicine? Do not take this medicine with any of the following medications: aspirin and aspirin-like medicines cidofovir methotrexate NSAIDs, medicines for pain and inflammation, like ibuprofen or naproxen pemetrexed probenecid This medicine may also interact with the following medications: alcohol alendronate alprazolam carbamazepine cyclosporine diuretics flavocoxid fluoxetine ginkgo lithium medicines for high blood pressure like enalapril medicines that affect platelets like pentoxifylline medicines that treat or prevent blood clots like heparin, warfarin muscle relaxants phenytoin steroid medicines like prednisone or cortisone thiothixene What if I miss a dose? If you miss a dose, take it as soon as you can. If it is almost time for your next dose, take only that dose. Do not take double or extra doses. Where should I keep my medicine? Keep out of the reach of children. Store at room temperature between 20 and 25 degrees C (68 and 77 degrees F). Throw away any unused medicine after the expiration date. What should I tell my health care provider before I take this medicine? They need to know if you have any of these conditions: asthma bleeding problems like hemophilia cigarette smoker drink more than 3 alcohol containing drinks a day heart disease or circulation problems such as heart failure or leg edema (fluid retention) high blood pressure kidney disease liver disease stomach bleeding or ulcers an unusual or allergic reaction to ketorolac, aspirin, other NSAIDs, other medicines, foods, dyes, or preservatives or trying to get breast-feeding What should I watch for while using this medicine? Tell your doctor or health congregational care pastor if your pain does not get better. Talk to your doctor before taking another medicine for pain. Do not treat yourself. This medicine does not prevent heart attack or stroke. In fact, this medicine may increase the chance of a heart attack or stroke. The chance may increase with longer use of this medicine and in people who have heart disease. If you take aspirin to prevent heart attack or stroke, talk with your doctor or health congregational care pastor. Do not take medicines such as ibuprofen and naproxen with this medicine. Side effects such as stomach upset, nausea, or ulcers may be more likely to occur. Many medicines available without a prescription should not be taken with this medicine. This medicine can cause ulcers and bleeding in the stomach and intestines at any time during treatment. Do not smoke cigarettes or drink alcohol. These increase irritation to your stomach and can make it more susceptible to damage from this medicine. Ulcers and bleeding can happen without warning symptoms and can cause . You may get drowsy or dizzy. Do not drive, use machinery, or do anything that needs mental alertness until you know how this medicine affects you. Do not stand or sit up quickly, especially if you are an older patient. This reduces the risk of dizzy or fainting spells. This medicine can cause you to bleed more easily. Try to avoid damage to your teeth and gums when you brush or floss your teeth. You have been given the following additional information: Kidney Stone W/ Colic Hydrocodone Bitartrate, Acetaminophen Oral tablet Ondansetron Oral disintegrating tablet Ketorolac Tromethamine Oral tablet No driving or operating machinery while taking medication. Sedative medication was given during your visit. Do not work until released. (Electronically signed by Santo Mckeon MD 10/22/2016 15:49)
--- NOTE | 2016-10-22 15:49 | ED MAR SUMMARY ---
..... Medication Administration Record [facility] [address] [place] [address] Patient: SUSU KINGSLEY Visit ID: [id number] 31y, F Weight: 108.8 kg Height/Length: 68 in BMI: 36.5 ALLERGIES: No Known Drug Allergy Start 01:10/18/2016 Bridger Genao R.N. Medication Administered: IV NS (SALINE), Dose: IV Fluids, Bolus: 1000 mL over 3 hour(s), Dispensed: 1000 mL bag, Site: #1 left AC. Medication Ordered: IV NS : initial bolus 500 mL (1000 mL/hr), then 125 mL/hr for 4h (NOW); Urgent. Given 01:10/18/2016 Bridger Genao R.N. Medication Administered: ZOFRAN [IVP] (ONDANSETRON HCL), Dose: 4 mg IVP, Site: #1 left AC. Medication Ordered: Zofran IV 4 mg (NOW). Given 02:09 10/18/2016 Bridger Genao R.N. Medication Administered: DILAUDID [IVP] (HYDROMORPHONE HCL PF), Dose: 0.5 mg IVP, Site: #1 left AC. Medication Ordered: Dilaudid IV 0.5 mg (HIGH ALERT MEDICATION, NOW). Given 03:55 10/18/2016 Bridger Genao R.N. Medication Administered: FLOMAX [PO] (TAMSULOSIN HCL), Dose: 0.4 mg PO. Medication Ordered: Flomax PO 0.4 mg (NOW). Given 03:56 10/18/2016 Bridger Genao R.N. Medication Administered: TORADOL [IVP], Dose: 30 mg IVP, Site: #1 left AC. Medication Ordered: Toradol IV 30 mg (NOW).
--- NOTE | 2016-10-22 15:49 | ED MAR SUMMARY ---
..... Medication Administration Record [facility] [address] [place] [address] Patient: SUSU KINGSLEY Visit ID: [id number] 31y, F Weight: 108.8 kg Height/Length: 68 in BMI: 36.5 ALLERGIES: No Known Drug Allergy Start 01:10/18/2016 Bridger Genao R.N. Medication Administered: IV NS (SALINE), Dose: IV Fluids, Bolus: 1000 mL over 3 hour(s), Dispensed: 1000 mL bag, Site: #1 left AC. Medication Ordered: IV NS : initial bolus 500 mL (1000 mL/hr), then 125 mL/hr for 4h (NOW); Urgent. Given 01:10/18/2016 Bridger Genao R.N. Medication Administered: ZOFRAN [IVP] (ONDANSETRON HCL), Dose: 4 mg IVP, Site: #1 left AC. Medication Ordered: Zofran IV 4 mg (NOW). Given 02:09 10/18/2016 Bridger Genao R.N. Medication Administered: DILAUDID [IVP] (HYDROMORPHONE HCL PF), Dose: 0.5 mg IVP, Site: #1 left AC. Medication Ordered: Dilaudid IV 0.5 mg (HIGH ALERT MEDICATION, NOW). Given 03:55 10/18/2016 Bridger Genao R.N. Medication Administered: FLOMAX [PO] (TAMSULOSIN HCL), Dose: 0.4 mg PO. Medication Ordered: Flomax PO 0.4 mg (NOW). Given 03:56 10/18/2016 Bridger Genao R.N. Medication Administered: TORADOL [IVP], Dose: 30 mg IVP, Site: #1 left AC. Medication Ordered: Toradol IV 30 mg (NOW).
--- NOTE | 2016-10-22 15:49 | ED MED RECONCILIATION SUMMARY ---
Patient: SUSU KINGSLEY Medication Reconciliation Report [facility] VisitID: [id number] [address] [place] [address] 31y, F Registration Date/Time: 10/18/2016 Weight: 108.8 kg Height/Length: 68 in. BMI: 36.5 ALLERGIES: No Known Drug Allergy The patient's Home Medications are listed below: THE FOLLOWING MEDICATIONS NEED TO BE RECONCILED: Control Pills The source(s) of the original Home Medication information: Not obtained. The following Medications were given to the patient in the Emergency Department: Zofran [IVP] IVP 4 mg, administered: 10/18/2016 1:23:00 AM IV NS IV Fluids bolus 1000 mL over 3 hour(s), administered: 10/18/2016 1:23:00 AM Dilaudid [IVP] IVP 0.5 mg, administered: 10/18/2016 2:09:00 AM Flomax [PO] PO 0.4 mg, administered: 10/18/2016 3:55:00 AM Toradol [IVP] IVP 30 mg, administered: 10/18/2016 3:56:00 AM The following Medications were prescribed to the patient: Hydrocodone/APAP 5mg/325mg: take 1 to 2 orally every 6 hours as needed for pain. Dispense fifteen (15). No refills. -- Santo Mckeon MD Zofran 4 mg: Take 1 orally every six hours as needed for nausea/vomiting. Dispense ten (10). No refills. Substitution is permissible. -- Santo Mckeon MD Toradol 10 mg tablets: Take 1 tablet orally every 6 hours as needed. Dispense fifteen (15). No refills. Substitution is permissible. -- Santo Mckeon MD Flomax 0.4 mg: take 1 orally every 24 hours. Dispense five (5). No refills. Substitution is permissible. -- Santo Mckeon MD
== END 2016-10-18 02:29 | disposition home or self-care (01) ==
LOC: ED SRH 00:01
DX: N13.2 Hydronephrosis with renal and ureteral calculous obstruction (principal); N23 Unspecified renal colic
CPT/HCPCS: 90004; 90100; 90469; 92235; 92530; 93070; 95059